=== PATIENT | male | born 1995 | race Caucasian/White ===

== ENCOUNTER 2019-02-01 21:39 | Emergency (ER) | payer BC, MEDICAID, OTHER ==
[~2019-02-01] VITALS: Ht 172.7 cm; Wt 87.0 kg
[2019-02-02] MEDS ORDERED: KETOROLAC 60MG/2ML VIAL IM ONE (01:00)
[2019-02-02 01:39] VITALS: BP 92/50
== END 2019-02-02 01:40 | disposition home or self-care (01) ==
LOC: ER 21:39
DX: L03.012 Cellulitis of left finger (principal)
CPT/HCPCS: 96372; 99283; J1885

== ENCOUNTER 2019-05-06 14:17 | Emergency (ER) | payer BC ==
[~2019-05-06] VITALS: Ht 172.7 cm; Wt 85.0 kg
[2019-05-06] MEDS ORDERED: DEXAMETHASONE 10 MG/ML VIAL IM ONE (16:15)
[2019-05-06] MEDS ORDERED: PENICILLIN G BENZATHINE 1,200,000 UNITS/2ML SYR IM ONE (16:15)
[2019-05-06 17:56] VITALS: BP 138/78
== END 2019-05-06 18:19 | disposition home or self-care (01) ==
LOC: ER 18:17
DX: J02.9 Acute pharyngitis, unspecified (principal); R03.0 Elevated blood-pressure reading, without diagnosis of hypertension
CPT/HCPCS: 87070; 87430; 96372; 99283; J0561; J1100

== ENCOUNTER 2022-01-26 19:37 | Emergency (ER) | payer BC ==
[~2022-01-26] VITALS: Ht 172.7 cm; Wt 82.0 kg
[2022-01-26 19:52] VITALS: BP 138/87
[2022-01-26] MEDS ORDERED: LIDOCAINE HCL/EPINEPHRINE 1%-EPI 1:100,000 50 ML VIAL INFIL ONE (21:30)
[2022-01-26] MEDS ORDERED: PEN G BENZ/PEN G PROCAINE CR 1.2 MMU/2 ML IM ONE (21:30)
[2022-01-26] MEDS ORDERED: KETOROLAC 60MG/2ML VIAL IM ONE (21:30)
[2022-01-26] MEDS ORDERED: DEXAMETHASONE 4MG/ML 1ML VIAL IM ONE (21:30)
[2022-01-26] MEDS ORDERED: IBUP-2029 MT (22:07)
== END 2022-01-26 22:55 | disposition home or self-care (01) ==
LOC: ER 19:37
DX: J36 Peritonsillar abscess (principal); F12.10 Cannabis abuse, uncomplicated
CPT/HCPCS: 87070; 87430; 96372; 99284; J0558; J1100; J1885

== ENCOUNTER 2022-01-29 00:14 | Emergency (ER) | payer BC ==
[~2022-01-29] VITALS: Ht 172.7 cm; Wt 82.0 kg
[~2022-01-29 00:14] MED LIST: IBUP-2029 MT
[2022-01-29] MEDS ORDERED: IBUPROFEN 600MG TABLET PO ONE (03:45)
[2022-01-29] MEDS ORDERED: ACETAMINOPHEN 325MG TABLET PO ONE ×2 (03:45)
[2022-01-29] MEDS ORDERED: KETOROLAC 30MG/ML VIAL IV STA (03:50)
[2022-01-29] MEDS ORDERED: SODIUM CHLORIDE 0.9% 1,000 ML IV ONE (04:00)
[2022-01-29] MEDS ORDERED: SODIUM CHLORIDE 0.9% 1000ML BAG (SEPSIS BOLUS) IV ONE (04:00)
[2022-01-29 04:42] LABS: BASOPHILS % 0.2 % (0.0-2.0); EOSINOPHILS % 0.1 % (0.0-5.0); HEMATOCRIT. 41.7 % (42.0-52.0); HEMOGLOBIN. 13.8 g/dL (14.0-18.0); LYMPHOCYTES % 8.4 % (20.0-50.0); MEAN CORPUSCULAR HEMOGLOBIN 28.9 pg (28.0-32.0); MEAN CORPUSCULAR VOLUME 87.1 fL (80.0-94.0); MEAN PLATELET VOLUME 9.8 fl (7.4-10.4); MONOCYTES % 10.4 % (2.0-8.0); NEUTROPHILS % 80.9 % (40.0-76.0); PLATELET 178 x1000/uL (130-400); RED BLOOD CELL COUNT 4.79 mill/uL (4.7-6.1); RED CELL DISTRIBUTION WIDTH 14.4 % (11.6-14.6)
[2022-01-29 05:06] LABS: CHLORIDE 105 mEq/L (98-107)
[2022-01-29] MEDS ORDERED: CLINDAMYCIN 900 MG in DEXTROSE 5% WATER 50 ML IV ONE (05:15)
[2022-01-29] MEDS ORDERED: DEXAMETHASONE 4MG/ML 1ML VIAL IV ONE (05:15)
[2022-01-29] MEDS ORDERED: CEFTRIAXONE 2 G PREMIX 50 ML IV ONE (05:15)
[2022-01-29] MEDS: DEXAMETHASONE 4MG/ML 1ML VIAL IV NR (05:28)
[2022-01-29] MEDS ORDERED: CLINDAMYCIN 900 MG PREMIX 50 ML IV NR (05:30)
[2022-01-29] MEDS ORDERED: IOHEXOL-300 100 ML BOTTLE ONE (07:17)
[2022-01-29 07:21] LABS: CLARITY URINE CLEAR (CLEAR); COLOR URINE YELLOW (YELLOW); KETONES URINE NEGATIVE (NEGATIVE); LEUKOCYTE ESTERASE URINE NEGATIVE (NEGATIVE); NITRITE URINE NEGATIVE (NEGATIVE); OCCULT BLOOD URINE NEGATIVE (NEGATIVE); PH URINE 6.5 (4.5-8.0); PROTEIN URINE NEGATIVE (NEGATIVE); SPECIFIC GRAVITY URINE 1.009 (1.005-1.030)
[2022-01-29] MEDS ORDERED: CLIN-194 MT (09:47)
[2022-01-29] MEDS ORDERED: P20 MT (09:47)
[2022-01-29 09:56] VITALS: BP 134/84
== END 2022-01-29 09:59 | disposition home or self-care (01) ==
LOC: ER 00:14
DX: J03.90 Acute tonsillitis, unspecified (principal); F12.10 Cannabis abuse, uncomplicated; Z20.822 Contact with and (suspected) exposure to COVID-19
CPT/HCPCS: 36415; 70491; 71045; 80053; 81003; 83605; 84145; 85025; 87040; 87086; 87426; 93005; 96361; 96374; 96375; 99285; C9803; J0696; J1100; J1885; J3490; J7030; J7060; Q9967

== ENCOUNTER 2023-07-02 20:04 | Emergency (ER) | payer BC ==
[~2023-07-02] VITALS: Ht 170.2 cm; Wt 83.0 kg
[~2023-07-02 20:04] MED LIST changes: +CLIN-194 MT; +P20 MT
[2023-07-02 20:09] VITALS: O2SAT 98
[2023-07-02] MEDS ORDERED: PENI500T MT (20:30)
[2023-07-02] MEDS ORDERED: DEXAMETHASONE 10 MG/ML VIAL PO ONE (21:15)
[2023-07-02 21:55] VITALS: BP 140/87; PULSE 80; RESP 20; TEMP 98.7
== END 2023-07-02 22:08 | disposition home or self-care (01) ==
LOC: ER 20:04
DX: J03.90 Acute tonsillitis, unspecified (principal)
CPT/HCPCS: 99283; J1100; Z7610

== ENCOUNTER 2023-08-26 23:23 | Emergency (ER) | payer BC ==
[~2023-08-26] VITALS: Ht 172.7 cm; Wt 76.0 kg
[~2023-08-26 23:23] MED LIST changes: +PENI500T MT
[2023-08-26 23:27] VITALS: BP 140/71; PULSE 107; RESP 16; TEMP 99.5; O2SAT 98
[2023-08-27] MEDS ORDERED: KETOROLAC 60MG/2ML VIAL IM STA (00:19)
[2023-08-27] MEDS ORDERED: PENICILLIN G BENZATHINE 1,200,000 UNITS/2ML SYR IM ONE (00:30)
[2023-08-27] MEDS ORDERED: DEXAMETHASONE 10 MG/ML VIAL IM ONE (00:30)
[2023-08-27] MEDS ORDERED: NAPR-681 MT (02:03)
[2023-08-27] MEDS ORDERED: AMOX1TAB16 MT (02:03)
[2023-08-27] MEDS ORDERED: P20 PO (02:03)
== END 2023-08-27 02:28 | disposition home or self-care (01) ==
LOC: ER 23:30
DX: J02.0 Streptococcal pharyngitis (principal)
CPT/HCPCS: 99283; 87430; J0561; J1100; J1885

== ENCOUNTER 2024-02-06 23:21 | Emergency (ER) | payer SELFPAY ==
[~2024-02-06] VITALS: Ht 172.7 cm; Wt 82.0 kg
[~2024-02-06 23:21] MED LIST changes: +AMOX1TAB16 MT; +NAPR-681 MT; +P20 PO
[2024-02-06 23:42] VITALS: O2SAT 98
[2024-02-07] MEDS: ACETAMINOPHEN 650MG/20.3ML UDC PO ONE (00:49)
[2024-02-07] MEDS: DEXAMETHASONE 10 MG/ML VIAL IM ONE (00:50)
[2024-02-07] MEDS ORDERED: PENI500T MT (01:14)
[2024-02-07 01:51] VITALS: BP 123/75; PULSE 98; RESP 16; TEMP 98.6
== END 2024-02-07 01:52 | disposition home or self-care (01) ==
LOC: ER 23:27
DX: J02.0 Streptococcal pharyngitis (principal); Z79.899 Other long term (current) drug therapy
CPT/HCPCS: 99283; 87430; 96372; J1100